=== PATIENT | male | born 1995 | race Caucasian/White ===

== ENCOUNTER 2018-07-31 21:36 | Inpatient (IN) | payer BC, OTHER ==
[~2018-07-31] VITALS: Ht 180.3 cm; Wt 72.6 kg
[2018-07-31] MEDS ORDERED: SRC BENZO WITHDRAWAL ADMITTING PROTOCOL XX PRN (23:45)
[2018-07-31] MEDS ORDERED: MAGNESIUM HYDROXIDE 30 ML LIQUID UDC PO PRN (23:45)
[2018-07-31] MEDS ORDERED: LORAZEPAM 2 MG/1 ML VIAL IM PRN (23:45)
[2018-07-31] MEDS ORDERED: diphenhydrAMINE 50 MG CAPSULE PO PRN (23:45)
[2018-07-31] MEDS ORDERED: HYDROXYZINE PAMOATE 25 MG CAPSULE PO PRN (23:45)
[2018-07-31] MEDS ORDERED: SRC ALCOHOL WITHDRAWAL ADMITTING PROTOCOL XX PRN (23:45)
[2018-07-31] MEDS ORDERED: LORAZEPAM 0.5 MG TABLET PO PRN ×2 (23:45)
[2018-07-31] MEDS ORDERED: LOPERAMIDE HCL 2 MG CAPSULE PO PRN ×2 (23:45)
[2018-07-31] MEDS ORDERED: CLONIDINE HCL 0.1 MG TABLET PO PRN (23:45)
[2018-07-31] MEDS ORDERED: MIRALAX 17 GM POWD.PACK PO PRN (23:45)
[2018-08-01] MEDS ORDERED: THIAMINE HCL 200 MG/2 ML VIAL IM ONE
[2018-08-01 00:31] LABS: *AMPHETAMINE, URINE POSITIVE (NEGATIVE); *BARBITURATE, URINE NEGATIVE (NEGATIVE); *CANNABINOID, URINE NEGATIVE (NEGATIVE); *COCCAINE, URINE NEGATIVE (NEGATIVE); *OPIATE, URINE NEGATIVE (NEGATIVE); *PHENCYCLIDINE SCREEN,URINE NEGATIVE (NEGATIVE)
[2018-08-01 00:31] LABS: BASOPHILS % (AUTO) 0.7 % (0.0-2.0); EOSINOPHILS # (AUTO) 0.3 K/uL (0.0-0.7); HEMATOCRIT 41.8 % (36.7-47.1); HEMOGLOBIN 14.8 g/dL (12.5-16.3); LYMPHOCYTES # (AUTO) 2.3 K/uL (20.0-40.0); LYMPHOCYTES % (AUTO) 40.4 % (20.5-51.5); MEAN CORPUSCULAR HEMOGLOBIN 34.1 uug (23.8-33.4); MEAN CORPUSCULAR HGB CONC 36 g/dL (32.5-36.3); MEAN CORPUSCULAR VOLUME 95.9 fL (73.0-96.2); MONOCYTES # (AUTO) 0.7 K/uL (2.0-10.0); MONOCYTES % (AUTO) 11.9 % (0.0-11.0); NEUTROPHILS # (AUTO) 2.3 K/uL (1.8-8.9); PLATELET COUNT (AUTO) 239 K/uL (152-348); RED BLOOD CELL COUNT(AUTO) 4.36 MIL/uL (4.06-5.63); WHITE BLOOD COUNT (AUTO) 5.6 K/uL (3.6-10.2)
[2018-08-01 01:01] LABS: ETHANOL < 3 MG/DL (0-0)
[2018-08-01 01:12] LABS: ALANINE AMINOTRANSFERASE 25 U/L (16-63); ALKALINE PHOSPHATASE 62 U/L (50-136); AMYLASE 33 U/L (25-115); ASPARTATE AMINOTRANSFERASE 16 U/L (15-37); BILIRUBIN,TOTAL 0.3 mg/dL (0.2-1.0); CARBON DIOXIDE 30 mmol/L (21-32); CHLORIDE 103 mmol/L (98-107); GLUCOSE 95 mg/dL (74-106); LIPASE 166 U/L (73-393); MAGNESIUM 1.9 mg/dL (1.8-2.4); POTASSIUM 3.5 mmol/L (3.5-5.1)
[2018-08-01 01:25] LABS: THYROID STIMULATING HORMONE 0.907 mIU/mL (0.358-3.740)
[2018-08-01 02:21] LABS: UREA NITROGEN, BLOOD 10 mg/dL (7-18)
[2018-08-01] MEDS ORDERED: GABA600T12 PO (02:29)
[2018-08-01] MEDS ORDERED: MULT-948 PO (02:29)
[2018-08-01] MEDS ORDERED: ROPI0.5T GT (02:29)
[2018-08-01] MEDS ORDERED: ESTR0.5T PO (02:29)
[2018-08-01] MEDS ORDERED: D-ME-89 PO (02:29)
[2018-08-01] MEDS ORDERED: FLUO10CA26 PO (02:29)
[2018-08-01] MEDS ORDERED: QUET100T PO (02:29)
[2018-08-01] MEDS ORDERED: SPIR50TA5 PO (02:29)
[2018-08-01] MEDS ORDERED: PROM25TA15 PO (02:29)
[2018-08-01] MEDS ORDERED: AMOX875T2 PO (02:29)
[2018-08-01] MEDS ORDERED: LAMO25TA5 GT (02:29)
[2018-08-01 05:00] VITALS: BP 127/74
[2018-08-01 08:55] VITALS: BP 116/68
[2018-08-01] MEDS ORDERED: TUBERCULIN,PURIF.PROT.DERIV. 5 TU/0.1 ML TEST ID ONE (09:00)
[2018-08-01] MEDS: MULTIVITAMINS,THERAPEUTIC TABLET PO SCH (09:55)
[2018-08-01] MEDS: THIAMINE HCL 100 MG TABLET PO SCH (09:55)
[2018-08-01] MEDS: FOLIC ACID 1 MG TABLET PO SCH (09:55)
[2018-08-01] MEDS ORDERED: DIAZEPAM 10 MG TABLET PO PRN ×2 (11:30)
[2018-08-01] MEDS ORDERED: DIAZEPAM 5 MG TABLET PO PRN (11:30)
[2018-08-01] MEDS ORDERED: 5 DAY TAPER VALIUM-SERENITY PROTOCOL PO PRN (11:30)
[2018-08-01] MEDS ORDERED: ESTRADIOL 1 MG TABLET PO SCH (11:45)
[2018-08-01] MEDS ORDERED: SPIRONOLACTONE 50 MG TABLET PO SCH (11:45)
[2018-08-01 12:30] VITALS: BP 101/67
[2018-08-01] MEDS: DIAZEPAM 10 MG TABLET PO SCH ×2 (12:36→20:28)
[2018-08-01] MEDS: MAG HYDROX/AL HYDROX/SIMETH 30 ML LIQUID UDC PO PRN (15:03)
[2018-08-01 16:55] VITALS: BP 106/57
[2018-08-01] MEDS: ESTRADIOL 1 MG TABLET PO SCH (17:13)
[2018-08-01] MEDS: ropiniROLE 0.25 MG TABLET PO SCH (17:13)
[2018-08-01] MEDS ORDERED: PROMETHAZINE HCL 25 MG TABLET PO PRN (17:30)
[2018-08-01] MEDS: SPIRONOLACTONE 50 MG TABLET PO SCH (17:46)
[2018-08-01] MEDS: IBUPROFEN 600 MG TABLET PO PRN (19:49)
[2018-08-01 20:00] VITALS: BP 102/54
[2018-08-01] MEDS: LAMOTRIGINE 25 MG TABLET PO SCH (20:28)
[2018-08-01] MEDS: QUETIAPINE FUMARATE 100 MG TABLET PO SCH (20:31)
[2018-08-02] VITALS: BP 98/53
[2018-08-02 08:00] VITALS: BP 90/63
[2018-08-02] MEDS: DIAZEPAM 5 MG TABLET PO SCH ×4 (08:30→20:55)
[2018-08-02] MEDS: THIAMINE HCL 100 MG TABLET PO SCH (08:30)
[2018-08-02] MEDS: MULTIVITAMINS,THERAPEUTIC TABLET PO SCH (08:30)
[2018-08-02] MEDS: SPIRONOLACTONE 50 MG TABLET PO SCH ×2 (08:30→17:02)
[2018-08-02] MEDS: FLUOXETINE HCL 20 MG CAPSULE PO SCH (08:30)
[2018-08-02] MEDS: FOLIC ACID 1 MG TABLET PO SCH (08:31)
[2018-08-02] MEDS ORDERED: FLUOXETINE HCL 10 MG CAPSULE PO SCH ×2 (09:00)
[2018-08-02] MEDS: ESTRADIOL 1 MG TABLET PO SCH ×2 (09:03→17:02)
[2018-08-02 10:07] LABS: HEPATITIS B SURFACE AG Negative (Negative)
[2018-08-02 12:00] VITALS: BP 100/71
[2018-08-02 16:00] VITALS: BP 111/60
[2018-08-02] MEDS: ropiniROLE 0.25 MG TABLET PO SCH (17:02)
[2018-08-02 20:00] VITALS: BP 112/66
[2018-08-02] MEDS: QUETIAPINE FUMARATE 100 MG TABLET PO SCH (20:54)
[2018-08-02] MEDS: LAMOTRIGINE 25 MG TABLET PO SCH (20:55)
[2018-08-02] MEDS: IBUPROFEN 600 MG TABLET PO PRN (21:02)
[2018-08-03 08:00] VITALS: BP 115/61
[2018-08-03] MEDS: THIAMINE HCL 100 MG TABLET PO SCH (08:59)
[2018-08-03] MEDS: ESTRADIOL 1 MG TABLET PO SCH ×2 (08:59→17:03)
[2018-08-03] MEDS: FOLIC ACID 1 MG TABLET PO SCH (08:59)
[2018-08-03] MEDS: FLUOXETINE HCL 20 MG CAPSULE PO SCH (08:59)
[2018-08-03] MEDS: DIAZEPAM 5 MG TABLET PO SCH ×3 (08:59→21:17)
[2018-08-03] MEDS: MULTIVITAMINS,THERAPEUTIC TABLET PO SCH (08:59)
[2018-08-03] MEDS: SPIRONOLACTONE 50 MG TABLET PO SCH ×2 (09:00→17:02)
[2018-08-03] MEDS: MAG HYDROX/AL HYDROX/SIMETH 30 ML LIQUID UDC PO PRN (11:54)
[2018-08-03 12:00] VITALS: BP 133/61
[2018-08-03 16:00] VITALS: BP 121/67
[2018-08-03] MEDS: ropiniROLE 0.25 MG TABLET PO SCH (17:03)
[2018-08-03 20:00] VITALS: BP 112/66
[2018-08-03] MEDS: QUETIAPINE FUMARATE 100 MG TABLET PO SCH (21:17)
[2018-08-03] MEDS: LAMOTRIGINE 25 MG TABLET PO SCH (21:17)
[2018-08-03] MEDS: IBUPROFEN 600 MG TABLET PO PRN (21:17)
[2018-08-04] MEDS: MAG HYDROX/AL HYDROX/SIMETH 30 ML LIQUID UDC PO PRN ×2 (00:44→12:46)
[2018-08-04] MEDS ORDERED: DIAZEPAM 5 MG TABLET PO SCH (09:00)
[2018-08-04] MEDS: SPIRONOLACTONE 50 MG TABLET PO SCH ×2 (09:13→16:56)
[2018-08-04] MEDS: FOLIC ACID 1 MG TABLET PO SCH (09:13)
[2018-08-04] MEDS: FLUOXETINE HCL 20 MG CAPSULE PO SCH (09:13)
[2018-08-04] MEDS: THIAMINE HCL 100 MG TABLET PO SCH (09:13)
[2018-08-04] MEDS: ESTRADIOL 1 MG TABLET PO SCH ×2 (09:13→16:56)
[2018-08-04] MEDS: MULTIVITAMINS,THERAPEUTIC TABLET PO SCH (09:13)
[2018-08-04 12:24] VITALS: BP 119/67
[2018-08-04] MEDS: PANTOPRAZOLE SODIUM 40 MG TABLET.DR PO SCH (13:38)
[2018-08-04] MEDS: IBUPROFEN 600 MG TABLET PO PRN (15:27)
[2018-08-04 16:55] VITALS: BP 119/79
[2018-08-04] MEDS: ropiniROLE 0.25 MG TABLET PO SCH (17:01)
[2018-08-04] MEDS ORDERED: DIAZEPAM 10 MG TABLET PO ONE (18:15)
[2018-08-04] MEDS: ACETAMINOPHEN 325 MG TABLET PO PRN (18:19)
[2018-08-04 20:00] VITALS: BP 123/73
[2018-08-04] MEDS ORDERED: KETOROLAC TROMETHAMINE 30 MG INJ IVP ONE (20:00)
[2018-08-04] MEDS ORDERED: KETOROLAC TROMETHAMINE 30 MG INJ IM ONE (20:15)
[2018-08-04] MEDS: LAMOTRIGINE 25 MG TABLET PO SCH (20:35)
[2018-08-04] MEDS: QUETIAPINE FUMARATE 100 MG TABLET PO SCH (20:36)
[2018-08-04 22:00] VITALS: BP 120/71
[2018-08-05] MEDS: IBUPROFEN 600 MG TABLET PO PRN ×2 (01:45→08:21)
[2018-08-05] MEDS: ACETAMINOPHEN 325 MG TABLET PO PRN ×2 (01:45→08:21)
[2018-08-05] MEDS: PANTOPRAZOLE SODIUM 40 MG TABLET.DR PO SCH (07:01)
[2018-08-05 08:00] VITALS: BP 113/65
[2018-08-05] MEDS: THIAMINE HCL 100 MG TABLET PO SCH (08:21)
[2018-08-05] MEDS: FOLIC ACID 1 MG TABLET PO SCH (08:21)
[2018-08-05] MEDS: MULTIVITAMINS,THERAPEUTIC TABLET PO SCH (08:21)
[2018-08-05] MEDS: FLUOXETINE HCL 20 MG CAPSULE PO SCH (08:21)
[2018-08-05] MEDS: ESTRADIOL 1 MG TABLET PO SCH (08:21)
[2018-08-05] MEDS: SPIRONOLACTONE 50 MG TABLET PO SCH (08:21)
[2018-08-05] MEDS ORDERED: DIAZEPAM 5 MG TABLET PO SCH (09:00)
== END 2018-08-05 09:56 | disposition home or self-care (01) | DRG 895 ==
LOC: SRC 22:47
PROVIDERS: ADMIT Family Medicine Addiction Medicine; ATTEND Family Medicine Addiction Medicine
PROC: HZ2ZZZZ Detoxification Services for Substance Abuse Treatment (ICD-10-PCS; principal; 2018-07-31)
PROC: HZ31ZZZ Individual Counseling for Substance Abuse Treatment, Behavioral (ICD-10-PCS; 2018-08-01)
DX: F13.230 Sedative, hypnotic or anxiolytic dependence with withdrawal, uncomplicated (principal); F33.1 Major depressive disorder, recurrent, moderate; F10.230 Alcohol dependence with withdrawal, uncomplicated; Y90.0 Blood alcohol level of less than 20 mg/100 ml; F64.9 Gender identity disorder, unspecified; G25.81 Restless legs syndrome; F14.10 Cocaine abuse, uncomplicated; F15.23 Other stimulant dependence with withdrawal; K21.9 Gastro-esophageal reflux disease without esophagitis; Z81.8 Family history of other mental and behavioral disorders; F17.210 Nicotine dependence, cigarettes, uncomplicated
CPT/HCPCS: 36415; 80307; 80324; 80346; 83690; 83735; 84443; 85025; 86592; 86705; 86803; 87340; 87806; A4663; G0480; J1885; J8499; Q0163

== ENCOUNTER 2018-12-30 21:45 | Emergency (ER) | payer BC, OTHER ==
[~2018-12-30] VITALS: Ht 177.8 cm; Wt 79.4 kg
[~2018-12-30 21:45] MED LIST: ESTR0.5T PO; FLUO10CA26 PO; LAMO25TA5 GT; MULT-948 PO; PROM25TA15 PO; QUET100T PO; SPIR50TA5 PO
[2018-12-30] MEDS ORDERED: DEXTROSE 5% IV ONE (22:30)
[2018-12-30] MEDS ORDERED: PROMETHAZINE HCL IV ONE (22:30)
--- NOTE | 2018-12-30 23:00 | NUR ---
Patient discharged to home in stable conditon. Written and verbal after care instructions given. Patient verbalizes understanding of instructions. Pt. d/c w/ prescription per MD order, d/c papers signed, all belongings w/ pt., ID band removed, ambulated off unit accompanied by detox. staff w/ steady gait, NAD
[2018-12-30] MEDS ORDERED: PROMETHAZINE HCL 12.5 MG SUPP.RECT RC ONE ×3 (23:09→23:30)
[2018-12-30] MEDS ORDERED: PROMETHAZINE HCL 25 MG SUPP.RECT RC ONE (23:13)
== END 2018-12-30 23:56 | disposition home or self-care (01) ==
LOC: ER 21:45
DX: G89.29 Other chronic pain (principal); R10.84 Generalized abdominal pain; R11.2 Nausea with vomiting, unspecified; Z88.1 Allergy status to other antibiotic agents; Z88.8 Allergy status to other drugs, medicaments and biological substances; Z79.899 Other long term (current) drug therapy
CPT/HCPCS: 99282; J7060; A4663; J2550

== ENCOUNTER 2019-01-15 14:12 | Emergency (ER) | payer BC, MEDICAID ==
[~2019-01-15] VITALS: Ht 177.8 cm; Wt 79.4 kg
[2019-01-15 14:53] LABS: BASOPHILS % (AUTO) 0.3 % (0.0-2.0); EOSINOPHILS % (AUTO) 0.1 % (0.0-7.0); HEMATOCRIT 40.2 % (36.7-47.1); HEMOGLOBIN 13.7 g/dL (12.5-16.3); LYMPHOCYTES # (AUTO) 1.7 K/uL (20.0-40.0); LYMPHOCYTES % (AUTO) 18.8 % (20.5-51.5); MEAN CORPUSCULAR HEMOGLOBIN 31.8 uug (23.8-33.4); MEAN CORPUSCULAR HGB CONC 34 g/dL (32.5-36.3); MEAN CORPUSCULAR VOLUME 93.5 fL (73.0-96.2); MONOCYTES # (AUTO) 0.8 K/uL (2.0-10.0); MONOCYTES % (AUTO) 9.2 % (0.0-11.0); NEUTROPHILS # (AUTO) 6.5 K/uL (1.8-8.9); NEUTROPHILS % (AUTO) 71.6 % (38.5-71.5); PLATELET COUNT (AUTO) 362 K/uL (152-348); WHITE BLOOD COUNT (AUTO) 9.1 K/uL (3.6-10.2)
[2019-01-15 14:56] LABS: CARBON DIOXIDE 25 mmol/L (21-32); CHLORIDE 101 mmol/L (98-107); GLUCOSE 100 mg/dL (74-106); POTASSIUM 4.3 mmol/L (3.5-5.1); UREA NITROGEN, BLOOD 14 mg/dL (7-18)
[2019-01-15 15:06] LABS: ETHANOL 4 MG/DL (0-0)
[2019-01-15 15:09] LABS: ALANINE AMINOTRANSFERASE 19 U/L (16-63); ALKALINE PHOSPHATASE 55 U/L (50-136); ASPARTATE AMINOTRANSFERASE 14 U/L (15-37); BILIRUBIN,DIRECT 0.1 mg/dL (0.0-0.2); BILIRUBIN,TOTAL 0.3 mg/dL (0.2-1.0); TOTAL PROTEIN, SERUM 8.8 g/dL (6.4-8.2)
[2019-01-15 15:11] LABS: ACETAMINOPHEN < 2.0 ug/mL (10-30)
--- NOTE | 2019-01-15 15:18 | NUR ---
Patient discharged to home in stable conditon. Written and verbal after care instructions given. Patient verbalizes understanding of instructions.pt accompanied by the personanisha from the detox center
== END 2019-01-15 15:20 | disposition home or self-care (01) ==
LOC: ER 14:16
DX: F19.90 Other psychoactive substance use, unspecified, uncomplicated (principal); F15.10 Other stimulant abuse, uncomplicated; F14.10 Cocaine abuse, uncomplicated; F32.9 Major depressive disorder, single episode, unspecified; Z88.1 Allergy status to other antibiotic agents; Z88.8 Allergy status to other drugs, medicaments and biological substances; Z79.899 Other long term (current) drug therapy
CPT/HCPCS: 36415; 80048; 80076; 85025; 99283; G0480 ×2; G0481; A4663